=== PATIENT | female | born 2000 | race Caucasian/White ===

== ENCOUNTER → 2025-05-01 | Outpatient (CLI) | payer OTHER ==
[2025-05-01 10:38] LABS: PLATELET COUNT, AUTOMATED 206 10^3/uL (150-450)
[2025-05-01 11:05] LABS: IRON (FE) 56.0 UG/DL (50-170)
== END ==
LOC: M PLALAB 09:01
PROVIDERS: ATTEND Nurse Practitioner Family
DX: O99.013 Anemia complicating pregnancy, third trimester (principal)

== ENCOUNTER → 2025-05-15 | Outpatient (REF) | payer OTHER | LOC: M PLALAB 07:01 | PROVIDERS: ATTEND Nurse Practitioner Family | DX: Z36.85 Encounter for antenatal screening for Streptococcus B (principal); Z3A.36 36 weeks gestation of pregnancy ==